=== PATIENT | female | born 1980 | race Caucasian/White ===

== ENCOUNTER 2021-09-01 16:55 | Inpatient (IN) ==
[2021-09-01] MEDS ORDERED: Naloxone 0.4 MG/ML INJ IVP PRN (19:46)
[2021-09-01 20:11] LABS: Adenovirus Not Detected (Not Detect); Bordetella Pertussis Not Detected (Not Detect); Chlamydophila pneumoniae Not Detected (Not Detect); Coronavirus 229E Not Detected (Not Detect); Coronavirus HKU1 Not Detected (Not Detect); Coronavirus NL63 Not Detected (Not Detect); Coronavirus OC43 Not Detected (Not Detect); Human Metapneumovirus Not Detected (Not Detect); Human Rhinovirus/Enterovirus DETECTED (Not Detect); Influenza A Subtype 2009 H1 Not Detected (Not Detect); Influenza B Not Detected (Not Detect); Mycoplasma pneumoniae Not Detected (Not Detect); Parainfluenza Virus 1 Not Detected (Not Detect); Parainfluenza Virus 2 Not Detected (Not Detect); Parainfluenza Virus 3 Not Detected (Not Detect); Parainfluenza Virus 4 Not Detected (Not Detect); Respiratory Syncytial Virus Not Detected (Not Detect); SARS-CoV-2 Not Detected (Not Detect)
[2021-09-01] MEDS ORDERED: Vancomycin 2,000 MG/520 ML IV.SOLN IVPB ONE (21:00)
[2021-09-01] MEDS ORDERED: 0.9 % Sodium Chloride 500 ML IVC ONE (21:06)
[2021-09-01] MEDS: Melatonin 3 MG TABLET PO PRN (21:20)
[2021-09-01 21:22] LABS: ABG Base Excess -4 mEq/L (-2 to 3); ABG HCO3 22 mEq/L (21-27); ABG Oxygen Saturation 93 % (95-98); ABG PCO2 42 mmHg (35-45); ABG PH 7.32 pH Units (7.32-7.45); ABG PO2 74 mmHg (85-104); ABG TCO2 23 mEq/L (20-26)
[2021-09-01] MEDS: Cefepime HCl 2,000 MG in 0.9 % Sodium Chloride 10 ML IVP SCH (21:39)
[2021-09-01] MEDS: MethylPREDNISolone 40 MG/ML VIAL IVP SCH (21:40)
[2021-09-01] MEDS ORDERED: 0.9 % Sodium Chloride 1,000 ML IVC SCH (23:45)
[2021-09-02] MEDS: Ipratropium/Albuterol Neb 3 ML IH SCH ×7 (00:08→23:15)
[2021-09-02] MEDS ORDERED: 0.9 % Sodium Chloride 1,000 ML IVC SCH (00:30)
[2021-09-02 00:56] LABS: Sodium, Urine 28.7 mEq/L
[2021-09-02 01:30] LABS: Basophils # 0.1 K/mcL (0.0-0.2); Basophils % 0.5 %; Eosinophils # 0.1 K/mcL (0.0-0.6); Eosinophils % 0.5 %; Hematocrit 37.2 % (35.3-44.9); Immature Granulocytes % 2.4 % (0-4); Immature Platelets 16.7 % (1.1-6.1); Lymphocytes # 1.1 K/mcL (0.6-4.6); Lymphocytes % 11.9 %; Mean Corpuscular HGB Conc 32.3 g/dL (31.6-35.5); Mean Corpuscular Hemoglobin 28.4 pg (28.0-33.3); Mean Corpuscular Volume 88.2 fL (83.0-100.0); Mean Platelet Volume 12.9 fL (9.4-12.4); Monocytes # 0.3 K/mcL (0.0-1.3); Monocytes % 3.7 %; Red Blood Count 4.22 M/mcL (3.82-4.97); Red Cell Distribution Width 14.9 % (11.5-14.5); White Blood Count 9.2 K/mcL (4.3-11.1)
[2021-09-02 01:32] LABS: Neutrophils # 7.5 K/mcL (1.6-8.9); Platelet Count 91 K/mcL (140-400)
[2021-09-02 01:44] LABS: Albumin 2.6 g/dL (3.5-5.7); Albumin/Globulin Ratio 0.7 (1.1-2.2); Bilirubin,Direct 2.2 mg/dL (0.0-0.2); Bilirubin,Indirect 0.9 mg/dL (0.0-1.0); Bilirubin,Total 3.1 mg/dL (0.3-1.0); Calcium 7.9 mg/dL (8.6-10.3); Globulin 3.6 g/dL (2.4-3.5); Potassium 4.3 mEq/L (3.5-5.1); Total Protein 6.2 g/dL (6.4-8.9)
[2021-09-02 01:55] LABS: Platelet Estimate Decreased (Normal); Reactive Lymphocytes Present (Not Present); Toxic Vacuolation Present (Not Present)
[2021-09-02 03:28] LABS: Estimated Average Glucose 123 mg/dl; Hemoglobin A1C 5.9 %
[2021-09-02] MEDS ORDERED: *HR* Heparin 5,000 UNIT/ML VIAL IVP ONE (04:12)
[2021-09-02] MEDS ORDERED: *HR* Heparin 5,000 UNIT/ML VIAL IVP PRN ×2 (04:12)
[2021-09-02] MEDS: Heparin 25,000UNIT/250ML 1/2NS 25,000 UNIT/250 ML IV.SOLN IVC SCH ×3 (04:54→19:49)
[2021-09-02] MEDS: Cefepime HCl 2,000 MG in 0.9 % Sodium Chloride 10 ML IVP SCH (05:20)
[2021-09-02] MEDS: MethylPREDNISolone 40 MG/ML VIAL IVP SCH ×3 (05:20→20:56)
[2021-09-02] MEDS ORDERED: *HR* Heparin 5,000 UNIT/ML VIAL SQ SCH (06:00)
[2021-09-02] MEDS: Insulin LISPRO 300 UNITS/3 ML VIAL SUBQ SCH ×3 (08:00→16:29)
[2021-09-02 09:15] LABS: Hematocrit 38.1 % (35.3-44.9); Hemoglobin 12.2 g/dL (11.5-15.4); Immature Platelets 17.5 % (1.1-6.1); Mean Corpuscular Hemoglobin 28.1 pg (28.0-33.3); Mean Corpuscular Volume 87.8 fL (83.0-100.0); Monocytes # 0.2 K/mcL (0.0-1.3); Red Blood Count 4.34 M/mcL (3.82-4.97); Red Cell Distribution Width 15.1 % (11.5-14.5); White Blood Count 10.9 K/mcL (4.3-11.1)
[2021-09-02 09:34] LABS: Albumin 2.5 g/dL (3.5-5.7); Albumin/Globulin Ratio 0.7 (1.1-2.2); Bilirubin,Total 3.1 mg/dL (0.3-1.0); Calcium 7.7 mg/dL (8.6-10.3); Globulin 3.6 g/dL (2.4-3.5); Potassium 4.5 mEq/L (3.5-5.1); Total Protein 6.1 g/dL (6.4-8.9)
[2021-09-02 09:36] LABS: Platelet Count 98 K/mcL (140-400)
[2021-09-02] MEDS: Albumin 25% 25gram/100mL 25 GM/100 ML IV.SOLN IVPB SCH ×3 (09:40→23:48)
[2021-09-02 09:41] LABS: Neutrophils # 8.7 K/mcL (1.6-8.9); Platelet Estimate Decreased (Normal)
[2021-09-02 09:45] LABS: Bilirubin,Urine Negative (Negative); Blood,Urine Small (Negative); Clarity,Urine Ex.Turbid (Clear); Color,Urine Dark-Orange (Yellow); Glucose,Urine (UA) Normal (Normal); Ketones,Urine Negative (Negative); Leukocyte Esterase,Urine Large (Negative); Nitrite,Urine Negative (Negative); PH,Urine 5.5 pH Units (5.0-8.0); Protein,Urine 200 mg/dL (Neg-Trace); Specific Gravity,Urine 1.016 (1.010-1.025); Urobilinogen,Urine Normal (Normal)
[2021-09-02 09:55] LABS: Bacteria,Urine Present per hpf (None-Few); RBC,Urine Present per hpf (0-3); WBC,Urine TNTC per hpf (0-3)
[2021-09-02 09:56] LABS: Squamous Epithelial Cell,Urine Present per hpf (None-Few); Transitional Epi Cells,Urine Present per hpf (None-Few)
[2021-09-02] MEDS ORDERED: Ondansetron ODT 4 MG TAB.RAPDIS SL PRN (13:50)
[2021-09-02] MEDS ORDERED: Perflutren Lipid Microsphere 1.3 ML in 0.9 % Sodium Chloride 8.7 ML IVP PRN (15:22)
[2021-09-02] MEDS ORDERED: Cefepime HCl 2,000 MG in 0.9 % Sodium Chloride 10 ML IVP SCH ×2 (17:00→21:00)
[2021-09-02] MEDS: Budesonide/Formoterol 160/4.5 1 PUFF INH IH SCH (20:05)
[2021-09-02] MEDS ORDERED: MethylPREDNISolone 40 MG/ML VIAL IVP SCH (20:45)
[2021-09-02 20:48] LABS: Hepatitis B Surface Antigen Nonreactive (Nonreactive)
[2021-09-02] MEDS: methocarbamoL 750 MG TABLET PO SCH (20:56)
[2021-09-02] MEDS ORDERED: Vancomycin 2,000 MG/520 ML IV.SOLN IVPB ONE (21:00)
[2021-09-02 21:17] LABS: Hepatitis B Core IgM Nonreactive (Nonreactive); Hepatitis C Virus Antibody Nonreactive (Nonreactive)
[2021-09-02 21:19] LABS: Hepatitis A Antibody IgM Nonreactive (Nonreactive)
[2021-09-02] MEDS: Piperacillin/Tazobactam 3.375 GM in 0.9 % Sodium Chloride Mini Bag 100 ML IVPB SCH (23:49)
[2021-09-03 03:26] LABS: Basophils # 0.1 K/mcL (0.0-0.2); Basophils % 0.6 %; Hematocrit 34.7 % (35.3-44.9); Hemoglobin 11.2 g/dL (11.5-15.4); Immature Granulocytes % 6.3 % (0-4); Lymphocytes # 1.9 K/mcL (0.6-4.6); Mean Corpuscular HGB Conc 32.3 g/dL (31.6-35.5); Mean Corpuscular Hemoglobin 28.3 pg (28.0-33.3); Mean Corpuscular Volume 87.6 fL (83.0-100.0); Mean Platelet Volume 12.9 fL (9.4-12.4); Monocytes # 0.3 K/mcL (0.0-1.3); Neutrophils # 9.5 K/mcL (1.6-8.9); Platelet Count 106 K/mcL (140-400); Red Blood Count 3.96 M/mcL (3.82-4.97); Red Cell Distribution Width 14.9 % (11.5-14.5); Segmented Neutrophils % 76.1 %; White Blood Count 12.5 K/mcL (4.3-11.1)
[2021-09-03 03:41] LABS: Albumin 3.2 g/dL (3.5-5.7); Albumin/Globulin Ratio 0.9 (1.1-2.2); Bilirubin,Total 2.1 mg/dL (0.3-1.0); Calcium 8.1 mg/dL (8.6-10.3); Globulin 3.4 g/dL (2.4-3.5); Potassium 4.1 mEq/L (3.5-5.1); Total Protein 6.6 g/dL (6.4-8.9)
[2021-09-03 03:42] LABS: Complement C3 128 mg/dL (87-200)
[2021-09-03 04:01] LABS: Heparin anti-factor XA UFH 0.37 IU/mL (0.30-0.70)
[2021-09-03 04:02] LABS: INR 1.3; Prothrombin Time 14.2 Seconds (9.4-12.1)
[2021-09-03] MEDS: Ipratropium/Albuterol Neb 3 ML IH SCH ×6 (04:08→23:29)
[2021-09-03] MEDS: Heparin 25,000UNIT/250ML 1/2NS 25,000 UNIT/250 ML IV.SOLN IVC SCH ×4 (04:13→23:42)
[2021-09-03 04:26] LABS: Hypochromasia Present (Not Present); Platelet Estimate Decreased (Normal)
[2021-09-03] MEDS: MethylPREDNISolone 40 MG/ML VIAL IVP SCH ×3 (05:35→22:07)
[2021-09-03] MEDS: Budesonide/Formoterol 160/4.5 1 PUFF INH IH SCH ×2 (07:24→19:59)
[2021-09-03] MEDS: methocarbamoL 750 MG TABLET PO SCH ×2 (08:17→22:06)
[2021-09-03] MEDS: Piperacillin/Tazobactam 3.375 GM in 0.9 % Sodium Chloride Mini Bag 100 ML IVPB SCH (08:17)
[2021-09-03] MEDS: Albumin 25% 25gram/100mL 25 GM/100 ML IV.SOLN IVPB SCH (08:17)
[2021-09-03] MEDS: Insulin LISPRO 300 UNITS/3 ML VIAL SUBQ SCH ×4 (08:18→22:02)
[2021-09-03] MEDS: *HR* HYDROcodone/Acet 5/325 mg TABLET PO PRN (08:22)
[2021-09-03] MEDS: levoFLOXacin 750 MG/150 ML 750 MG/150 ML BAG IVPB SCH (11:48)
[2021-09-03] MEDS: Chlorhexidine Rinse 15 ML MOUTHWASH MM SCH ×2 (13:32→22:07)
[2021-09-03] MEDS: Sodium Bicarbonate 75 MEQ in 0.45 % Sodium Chloride 1,000 ML IVC SCH (16:10)
[2021-09-03] MEDS: Melatonin 3 MG TABLET PO PRN (22:07)
[2021-09-03] MEDS: metroNIDAZOLE 500 MG TABLET PO SCH (22:07)
[2021-09-04] MEDS: Sodium Bicarbonate 75 MEQ in 0.45 % Sodium Chloride 1,000 ML IVC SCH ×2 (01:29→12:04)
[2021-09-04] MEDS: Ipratropium/Albuterol Neb 3 ML IH SCH ×5 (04:28→20:31)
[2021-09-04 04:39] LABS: Albumin 3.3 g/dL (3.5-5.7); Albumin/Globulin Ratio 0.8 (1.1-2.2); Bilirubin,Direct 0.8 mg/dL (0.0-0.2); Bilirubin,Indirect 0.7 mg/dL (0.0-1.0); Bilirubin,Total 1.5 mg/dL (0.3-1.0); Globulin 4.4 g/dL (2.4-3.5); Total Protein 7.7 g/dL (6.4-8.9)
[2021-09-04] MEDS: MethylPREDNISolone 40 MG/ML VIAL IVP SCH ×3 (05:30→22:40)
[2021-09-04] MEDS: Heparin 25,000UNIT/250ML 1/2NS 25,000 UNIT/250 ML IV.SOLN IVC SCH ×3 (07:04→20:54)
[2021-09-04] MEDS: Budesonide/Formoterol 160/4.5 1 PUFF INH IH SCH ×2 (07:21→20:31)
[2021-09-04] MEDS: Insulin LISPRO 300 UNITS/3 ML VIAL SUBQ SCH ×4 (07:40→22:42)
[2021-09-04] MEDS: Chlorhexidine Rinse 15 ML MOUTHWASH MM SCH ×2 (07:41→22:48)
[2021-09-04] MEDS: levoFLOXacin 750 MG/150 ML 750 MG/150 ML BAG IVPB SCH (07:41)
[2021-09-04] MEDS: metroNIDAZOLE 500 MG TABLET PO SCH ×3 (07:41→22:49)
[2021-09-04] MEDS: methocarbamoL 750 MG TABLET PO SCH ×2 (07:41→22:49)
[2021-09-04 09:59] LABS: Calcium 8.2 mg/dL (8.6-10.3); Magnesium 2.3 mg/dL (1.6-2.6); Phosphorous 4.7 mg/dL (2.7-4.5); Potassium 4.2 mEq/L (3.5-5.1)
[2021-09-04 12:57] LABS: HSV 1 DNA DETECTED (Not Detect)
[2021-09-04 12:58] LABS: HSV 2 DNA Not Detected (Not Detect)
[2021-09-04] MEDS: Melatonin 3 MG TABLET PO PRN (22:49)
[2021-09-04] MEDS: Insulin DETEMIR 100 UNIT/ML X5UNITS SUBQ SCH (22:52)
[2021-09-04] MEDS: valACYclovir 500 MG TABLET PO SCH (22:56)
[2021-09-05] MEDS: Ipratropium/Albuterol Neb 3 ML IH SCH ×6 (00:02→20:24)
[2021-09-05] MEDS: Sodium Bicarbonate 75 MEQ in 0.45 % Sodium Chloride 1,000 ML IVC SCH (00:56)
[2021-09-05] MEDS: Heparin 25,000UNIT/250ML 1/2NS 25,000 UNIT/250 ML IV.SOLN IVC SCH ×2 (05:02→12:00)
[2021-09-05 05:19] LABS: Hemoglobin 11.2 g/dL (11.5-15.4); Mean Corpuscular Volume 86.5 fL (83.0-100.0)
[2021-09-05 05:21] LABS: Basophils # 0.1 K/mcL (0.0-0.2); Basophils % 0.6 %; Immature Granulocytes % 8.6 % (0-4); Immature Platelets 23.4 % (1.1-6.1); Lymphocytes # 1.4 K/mcL (0.6-4.6); Lymphocytes % 11.9 %; Mean Corpuscular HGB Conc 32.9 g/dL (31.6-35.5); Mean Corpuscular Hemoglobin 28.5 pg (28.0-33.3); Monocytes # 0.4 K/mcL (0.0-1.3); Monocytes % 3.6 %; Neutrophils # 8.8 K/mcL (1.6-8.9); Red Blood Count 3.93 M/mcL (3.82-4.97); Red Cell Distribution Width 15.9 % (11.5-14.5); Segmented Neutrophils % 75.3 %; White Blood Count 11.7 K/mcL (4.3-11.1)
[2021-09-05 05:35] LABS: BUN/Creatinine Ratio 45 (6-26); Blood Urea Nitrogen 45 mg/dL (6-20); Calcium 8.6 mg/dL (8.6-10.3); Carbon Dioxide 25 mEq/L (23-29); Chloride 103 mEq/L (98-107); Glucose 204 mg/dL (70-105); Magnesium 2.2 mg/dL (1.6-2.6); Osmolality,Calculated 303 (280-300); Phosphorous 3.8 mg/dL (2.7-4.5); Potassium 4.4 mEq/L (3.5-5.1); Sodium 138 mEq/L (136-145); eGFR For African Americans > 60 (> 60); eGFR For Non-African Americans > 60 (> 60)
[2021-09-05] MEDS: MethylPREDNISolone 40 MG/ML VIAL IVP SCH (05:43)
[2021-09-05 05:54] LABS: Platelet Count 97 K/mcL (140-400)
[2021-09-05] MEDS: Budesonide/Formoterol 160/4.5 1 PUFF INH IH SCH ×2 (07:47→20:24)
[2021-09-05] MEDS: Chlorhexidine Rinse 15 ML MOUTHWASH MM SCH ×2 (08:19→20:32)
[2021-09-05] MEDS: metroNIDAZOLE 500 MG TABLET PO SCH ×3 (08:19→20:32)
[2021-09-05] MEDS: levoFLOXacin 750 MG/150 ML 750 MG/150 ML BAG IVPB SCH (08:20)
[2021-09-05] MEDS: methocarbamoL 750 MG TABLET PO SCH ×2 (08:20→20:32)
[2021-09-05] MEDS: BuPROPion XL (24 HR) 150 MG TABLET PO SCH (08:20)
[2021-09-05] MEDS: valACYclovir 500 MG TABLET PO SCH ×2 (08:20→20:32)
[2021-09-05] MEDS: Insulin LISPRO 300 UNITS/3 ML VIAL SUBQ SCH ×4 (08:21→19:26)
[2021-09-05] MEDS: Insulin DETEMIR 100 UNIT/ML X5UNITS SUBQ SCH ×2 (08:40→20:32)
[2021-09-05] MEDS: Magic Mouthwash 10 ML UD Cup PO SCH ×3 (09:36→16:18)
[2021-09-05 09:48] LABS: ANA IgG by ELISA NONE DETECTED (None Detected)
[2021-09-05] MEDS: Pregabalin 75 MG CAPSULE PO SCH ×2 (16:18→20:32)
[2021-09-05] MEDS ORDERED: Sennosides/Docusate Sodium TABLET PO PRN (18:11)
[2021-09-05] MEDS: *HR* Rivaroxaban 15 MG TABLET PO SCH (20:32)
[2021-09-06] MEDS: Ipratropium/Albuterol Neb 3 ML IH SCH ×7 (00:58→23:51)
[2021-09-06 05:36] LABS: Basophils # 0.1 K/mcL (0.0-0.2); Basophils % 0.7 %; Eosinophils % 0.2 %; Hematocrit 34.8 % (35.3-44.9); Hemoglobin 11.3 g/dL (11.5-15.4); Immature Granulocytes % 7.7 % (0-4); Lymphocytes # 2.5 K/mcL (0.6-4.6); Lymphocytes % 20.6 %; Mean Corpuscular HGB Conc 32.5 g/dL (31.6-35.5); Mean Corpuscular Hemoglobin 28.5 pg (28.0-33.3); Mean Corpuscular Volume 87.9 fL (83.0-100.0); Monocytes # 0.4 K/mcL (0.0-1.3); Monocytes % 3.6 %; Neutrophils # 8.1 K/mcL (1.6-8.9); Platelet Count 149 K/mcL (140-400); Red Blood Count 3.96 M/mcL (3.82-4.97); Red Cell Distribution Width 15.3 % (11.5-14.5); Segmented Neutrophils % 67.2 %; White Blood Count 12.1 K/mcL (4.3-11.1)
[2021-09-06 05:53] LABS: BUN/Creatinine Ratio 49 (6-26); Blood Urea Nitrogen 38 mg/dL (6-20); Calcium 8.6 mg/dL (8.6-10.3); Carbon Dioxide 29 mEq/L (23-29); Chloride 104 mEq/L (98-107); Glucose 149 mg/dL (70-105); Magnesium 1.8 mg/dL (1.6-2.6); Osmolality,Calculated 302 (280-300); Phosphorous 2.9 mg/dL (2.7-4.5); Potassium 3.9 mEq/L (3.5-5.1); Sodium 140 mEq/L (136-145); eGFR For African Americans > 60 (> 60); eGFR For Non-African Americans > 60 (> 60)
[2021-09-06 06:41] LABS: Large Platelets Present (Not Present); Platelet Estimate Normal (Normal)
[2021-09-06] MEDS: Insulin LISPRO 300 UNITS/3 ML VIAL SUBQ SCH ×4 (07:20→21:19)
[2021-09-06] MEDS: Budesonide/Formoterol 160/4.5 1 PUFF INH IH SCH ×2 (07:38→20:36)
[2021-09-06] MEDS: predniSONE 20 MG TABLET PO SCH (08:04)
[2021-09-06] MEDS: atenoloL 25 MG TABLET PO SCH ×2 (08:04→21:50)
[2021-09-06] MEDS: metroNIDAZOLE 500 MG TABLET PO SCH ×3 (08:04→21:50)
[2021-09-06] MEDS: Furosemide 40 MG TABLET PO SCH (08:05)
[2021-09-06] MEDS: methocarbamoL 750 MG TABLET PO SCH ×2 (08:05→21:49)
[2021-09-06] MEDS: Cholecalciferol (D-3) 1,000 UNIT (25MCG) TABLET PO SCH (08:05)
[2021-09-06] MEDS: BuPROPion XL (24 HR) 150 MG TABLET PO SCH (08:05)
[2021-09-06] MEDS: levoFLOXacin 750 MG TABLET PO SCH (08:05)
[2021-09-06] MEDS: valACYclovir 500 MG TABLET PO SCH ×2 (08:06→21:50)
[2021-09-06] MEDS: allopurinoL 100 MG TABLET PO SCH (08:06)
[2021-09-06] MEDS: *HR* Rivaroxaban 15 MG TABLET PO SCH ×2 (08:06→21:50)
[2021-09-06] MEDS: Magic Mouthwash 10 ML UD Cup PO SCH ×3 (08:06→16:49)
[2021-09-06] MEDS: Pregabalin 75 MG CAPSULE PO SCH ×3 (08:06→21:49)
[2021-09-06] MEDS: Chlorhexidine Rinse 15 ML MOUTHWASH MM SCH (08:06)
[2021-09-06] MEDS: Insulin DETEMIR 100 UNIT/ML X5UNITS SUBQ SCH ×2 (08:06→21:19)
[2021-09-06] MEDS: *HR* HYDROcodone/Acet 5/325 mg TABLET PO PRN (18:44)
[2021-09-07] MEDS: Ipratropium/Albuterol Neb 3 ML IH SCH ×5 (04:37→20:16)
[2021-09-07 05:31] LABS: Hematocrit 36.9 % (35.3-44.9); Hemoglobin 12.1 g/dL (11.5-15.4); Mean Corpuscular HGB Conc 32.8 g/dL (31.6-35.5); Mean Corpuscular Hemoglobin 28.6 pg (28.0-33.3); Mean Corpuscular Volume 87.2 fL (83.0-100.0); Mean Platelet Volume 11.7 fL (9.4-12.4); Platelet Count 168 K/mcL (140-400); Red Blood Count 4.23 M/mcL (3.82-4.97); Red Cell Distribution Width 15.2 % (11.5-14.5); White Blood Count 15.1 K/mcL (4.3-11.1)
[2021-09-07 05:54] LABS: BUN/Creatinine Ratio 46 (6-26); Blood Urea Nitrogen 31 mg/dL (6-20); Calcium 8.6 mg/dL (8.6-10.3); Carbon Dioxide 32 mEq/L (23-29); Chloride 100 mEq/L (98-107); Glucose 122 mg/dL (70-105); Magnesium 1.5 mg/dL (1.6-2.6); Osmolality,Calculated 294 (280-300); Phosphorous 3.5 mg/dL (2.7-4.5); Potassium 3.7 mEq/L (3.5-5.1); Sodium 138 mEq/L (136-145); eGFR For African Americans > 60 (> 60); eGFR For Non-African Americans > 60 (> 60)
[2021-09-07 06:17] LABS: Stomatocytes 1+ (Not Present)
[2021-09-07 06:18] LABS: Eosinophils # 0.6 K/mcL (0.0-0.6); Lymphocytes # 4.5 K/mcL (0.6-4.6); Neutrophils # 9.7 K/mcL (1.6-8.9); Platelet Estimate Normal (Normal)
[2021-09-07] MEDS: Insulin LISPRO 300 UNITS/3 ML VIAL SUBQ SCH ×4 (07:30→21:02)
[2021-09-07] MEDS: Budesonide/Formoterol 160/4.5 1 PUFF INH IH SCH ×2 (07:55→20:16)
[2021-09-07] MEDS: BuPROPion XL (24 HR) 150 MG TABLET PO SCH (08:29)
[2021-09-07] MEDS: levoFLOXacin 750 MG TABLET PO SCH (08:29)
[2021-09-07] MEDS: Furosemide 40 MG TABLET PO SCH (08:29)
[2021-09-07] MEDS: methocarbamoL 750 MG TABLET PO SCH ×2 (08:29→21:00)
[2021-09-07] MEDS: allopurinoL 100 MG TABLET PO SCH (08:29)
[2021-09-07] MEDS: atenoloL 25 MG TABLET PO SCH ×2 (08:29→21:01)
[2021-09-07] MEDS: *HR* Rivaroxaban 15 MG TABLET PO SCH ×2 (08:29→21:01)
[2021-09-07] MEDS: Cholecalciferol (D-3) 1,000 UNIT (25MCG) TABLET PO SCH (08:29)
[2021-09-07] MEDS: predniSONE 20 MG TABLET PO SCH (08:30)
[2021-09-07] MEDS: Magnesium Oxide 400 MG TABLET PO SCH ×2 (08:30→21:01)
[2021-09-07] MEDS: Pregabalin 75 MG CAPSULE PO SCH ×3 (08:30→21:01)
[2021-09-07] MEDS: Magic Mouthwash 10 ML UD Cup PO SCH ×3 (08:30→15:51)
[2021-09-07] MEDS: valACYclovir 500 MG TABLET PO SCH ×2 (08:30→21:01)
[2021-09-07] MEDS: metroNIDAZOLE 500 MG TABLET PO SCH ×3 (08:30→21:01)
[2021-09-07] MEDS ORDERED: Insulin DETEMIR 100 UNIT/ML X5UNITS SUBQ SCH (21:00)
[2021-09-08] MEDS: Ipratropium/Albuterol Neb 3 ML IH SCH ×4 (00:25→11:23)
[2021-09-08] MEDS: Budesonide/Formoterol 160/4.5 1 PUFF INH IH SCH (07:37)
[2021-09-08 07:39] VITALS: BP 139/62; PULSE 80; TEMP 97
[2021-09-08] MEDS: Insulin LISPRO 300 UNITS/3 ML VIAL SUBQ SCH (09:17)
[2021-09-08] MEDS: Furosemide 40 MG TABLET PO SCH (09:30)
[2021-09-08] MEDS: *HR* Rivaroxaban 15 MG TABLET PO SCH (09:30)
[2021-09-08] MEDS: Magic Mouthwash 10 ML UD Cup PO SCH (09:30)
[2021-09-08] MEDS: allopurinoL 100 MG TABLET PO SCH (09:30)
[2021-09-08] MEDS: BuPROPion XL (24 HR) 150 MG TABLET PO SCH (09:30)
[2021-09-08] MEDS: methocarbamoL 750 MG TABLET PO SCH (09:31)
[2021-09-08] MEDS: valACYclovir 500 MG TABLET PO SCH (09:31)
[2021-09-08] MEDS: Pregabalin 75 MG CAPSULE PO SCH (09:31)
[2021-09-08] MEDS: atenoloL 25 MG TABLET PO SCH (09:31)
[2021-09-08] MEDS: levoFLOXacin 750 MG TABLET PO SCH (09:31)
[2021-09-08] MEDS: metroNIDAZOLE 500 MG TABLET PO SCH (09:31)
[2021-09-08] MEDS: predniSONE 20 MG TABLET PO SCH (09:31)
[2021-09-08] MEDS: Cholecalciferol (D-3) 1,000 UNIT (25MCG) TABLET PO SCH (09:32)
[2021-09-08] MEDS: Magnesium Oxide 400 MG TABLET PO SCH (09:32)
[2021-09-08 10:40] VITALS: O2SAT 91
[2021-09-22] MEDS ORDERED: *HR* Rivaroxaban 10 MG TABLET PO SCH (17:00)
== END 2021-09-08 13:11 | disposition home or self-care (01) | DRG 466 ==
LOC: 2NENU → SUATTDRO 19:46
PROVIDERS: ADMIT Internal Medicine; ATTEND Internal Medicine

== ENCOUNTER 2021-10-02 14:48 | Inpatient (IN) ==
[2021-10-02] MEDS ORDERED: D5% in Water 1,000 ML IVC PRN (17:27)
[2021-10-02] MEDS ORDERED: Dextrose Gel 15 GM/37.5 ML TUBE PO PRN ×2 (17:27)
[2021-10-02] MEDS ORDERED: *HR* Dextrose 50 % in Water (Syg) 50 ML SYRINGE IVP PRN (17:27)
[2021-10-02] MEDS ORDERED: Acetaminophen 325 MG TABLET PO PRN (17:27)
[2021-10-02] MEDS ORDERED: Naloxone 0.4 MG/ML INJ IVP PRN (17:27)
[2021-10-02] MEDS: *HR* OxyCODONE Immed Rel 5 MG TABLET PO PRN (18:24)
[2021-10-02] MEDS: *HR* Heparin 5,000 UNIT/ML VIAL SQ SCH (18:24)
[2021-10-02] MEDS: Vancomycin 2,000 MG/520 ML IV.SOLN IVPB SCH (21:18)
[2021-10-03] MEDS: Piperacillin/Tazobactam 3.375 GM in 0.9 % Sodium Chloride Mini Bag 100 ML IVPB SCH ×4 (00:34→23:41)
[2021-10-03] MEDS: *HR* Heparin 5,000 UNIT/ML VIAL SQ SCH ×2 (05:26→16:37)
[2021-10-03] MEDS: Insulin LISPRO 300 UNITS/3 ML VIAL SUBQ SCH ×3 (08:43→16:40)
[2021-10-03] MEDS: Pregabalin 75 MG CAPSULE PO SCH ×3 (08:49→20:59)
[2021-10-03] MEDS: BuPROPion XL (24 HR) 150 MG TABLET PO SCH (08:49)
[2021-10-03] MEDS: atenoloL 25 MG TABLET PO SCH ×2 (08:50→20:59)
[2021-10-03] MEDS: allopurinoL 100 MG TABLET PO SCH (08:50)
[2021-10-03] MEDS: methocarbamoL 750 MG TABLET PO SCH ×2 (08:50→20:59)
[2021-10-03] MEDS: Furosemide 40 MG TABLET PO SCH (08:50)
[2021-10-03] MEDS: Cholecalciferol (D-3) 1,000 UNIT (25MCG) TABLET PO SCH (08:50)
[2021-10-03] MEDS: Vancomycin 2,000 MG/520 ML IV.SOLN IVPB SCH ×2 (08:51→20:27)
[2021-10-03 09:19] LABS: Basophils % 0.6 %; Eosinophils # 0.2 K/mcL (0.0-0.6); Eosinophils % 3.3 %; Hematocrit 31.8 % (35.3-44.9); Hemoglobin 10.2 g/dL (11.5-15.4); Immature Granulocytes % 0.7 % (0-4); Lymphocytes # 1.9 K/mcL (0.6-4.6); Lymphocytes % 25.8 %; Mean Corpuscular HGB Conc 32.1 g/dL (31.6-35.5); Mean Corpuscular Hemoglobin 28.1 pg (28.0-33.3); Mean Corpuscular Volume 87.6 fL (83.0-100.0); Mean Platelet Volume 10.8 fL (9.4-12.4); Monocytes # 0.6 K/mcL (0.0-1.3); Monocytes % 8.5 %; Neutrophils # 4.4 K/mcL (1.6-8.9); Platelet Count 203 K/mcL (140-400); Red Blood Count 3.63 M/mcL (3.82-4.97); Red Cell Distribution Width 14.7 % (11.5-14.5); Segmented Neutrophils % 61.1 %; White Blood Count 7.3 K/mcL (4.3-11.1)
[2021-10-03 09:39] LABS: BUN/Creatinine Ratio 20 (6-26); Blood Urea Nitrogen 15 mg/dL (6-20); Calcium 8.2 mg/dL (8.6-10.3); Carbon Dioxide 24 mEq/L (23-29); Chloride 105 mEq/L (98-107); Glucose 120 mg/dL (70-105); Magnesium 1.9 mg/dL (1.6-2.6); Osmolality,Calculated 284 (280-300); Potassium 3.7 mEq/L (3.5-5.1); Sodium 136 mEq/L (136-145); eGFR For African Americans > 60 (> 60); eGFR For Non-African Americans > 60 (> 60)
[2021-10-03] MEDS: *HR* OxyCODONE Immed Rel 5 MG TABLET PO PRN (10:40)
[2021-10-03] MEDS: *HR* HYDROmorphone (PF) 1 MG/ML SYRINGE IVP ONE (11:20)
[2021-10-03] MEDS: Budesonide/Formoterol 160/4.5 1 PUFF INH IH SCH ×2 (11:23→20:23)
[2021-10-04 05:03] LABS: Basophils # 0.1 K/mcL (0.0-0.2); Basophils % 0.7 %; Eosinophils # 0.3 K/mcL (0.0-0.6); Eosinophils % 3.9 %; Hematocrit 32.7 % (35.3-44.9); Hemoglobin 10.4 g/dL (11.5-15.4); Immature Granulocytes % 0.4 % (0-4); Lymphocytes # 2.4 K/mcL (0.6-4.6); Lymphocytes % 33.1 %; Mean Corpuscular HGB Conc 31.8 g/dL (31.6-35.5); Mean Corpuscular Hemoglobin 28.5 pg (28.0-33.3); Mean Corpuscular Volume 89.6 fL (83.0-100.0); Monocytes # 0.8 K/mcL (0.0-1.3); Monocytes % 10.2 %; Neutrophils # 3.8 K/mcL (1.6-8.9); Platelet Count 201 K/mcL (140-400); Red Blood Count 3.65 M/mcL (3.82-4.97); Red Cell Distribution Width 14.6 % (11.5-14.5); Segmented Neutrophils % 51.7 %; White Blood Count 7.4 K/mcL (4.3-11.1)
[2021-10-04 05:22] LABS: BUN/Creatinine Ratio 19 (6-26); Blood Urea Nitrogen 13 mg/dL (6-20); Calcium 8.3 mg/dL (8.6-10.3); Carbon Dioxide 25 mEq/L (23-29); Chloride 103 mEq/L (98-107); Glucose 107 mg/dL (70-105); Osmolality,Calculated 283 (280-300); Potassium 3.4 mEq/L (3.5-5.1); Sodium 136 mEq/L (136-145); eGFR For African Americans > 60 (> 60); eGFR For Non-African Americans > 60 (> 60)
[2021-10-04] MEDS: *HR* Heparin 5,000 UNIT/ML VIAL SQ SCH ×2 (05:50→17:26)
[2021-10-04] MEDS ORDERED: Potassium Chloride Elixir 20 MEQ/15 ML UDC PO ONE (07:45)
[2021-10-04] MEDS: *HR* OxyCODONE Immed Rel 5 MG TABLET PO PRN ×2 (09:22→21:26)
[2021-10-04] MEDS: methocarbamoL 750 MG TABLET PO SCH ×2 (09:25→21:17)
[2021-10-04] MEDS: allopurinoL 100 MG TABLET PO SCH (09:25)
[2021-10-04] MEDS: Pregabalin 75 MG CAPSULE PO SCH ×3 (09:25→21:17)
[2021-10-04] MEDS: BuPROPion XL (24 HR) 150 MG TABLET PO SCH (09:25)
[2021-10-04] MEDS: Cholecalciferol (D-3) 1,000 UNIT (25MCG) TABLET PO SCH (09:26)
[2021-10-04] MEDS: atenoloL 25 MG TABLET PO SCH ×2 (09:26→21:17)
[2021-10-04] MEDS: Furosemide 40 MG TABLET PO SCH (09:26)
[2021-10-04] MEDS: Piperacillin/Tazobactam 3.375 GM in 0.9 % Sodium Chloride Mini Bag 100 ML IVPB SCH ×2 (09:27→17:25)
[2021-10-04] MEDS: Vancomycin 2,000 MG/520 ML IV.SOLN IVPB SCH ×2 (09:42→21:26)
[2021-10-04] MEDS: Budesonide/Formoterol 160/4.5 1 PUFF INH IH SCH ×2 (10:38→20:06)
[2021-10-04] MEDS: Insulin LISPRO 300 UNITS/3 ML VIAL SUBQ SCH ×3 (10:47→17:14)
[2021-10-04] MEDS ORDERED: polyethylene glycoL 3350 17 GM POWD.PACK PO PRN (12:19)
[2021-10-04] MEDS ORDERED: *HR* HYDROmorphone (PF) 1 MG/ML SYRINGE IVP ONE (12:46)
[2021-10-04] MEDS: *HR* HYDROmorphone (PF) 1 MG/ML SYRINGE IVP ONE (15:10)
[2021-10-05] MEDS: Piperacillin/Tazobactam 3.375 GM in 0.9 % Sodium Chloride Mini Bag 100 ML IVPB SCH ×2 (00:06→08:38)
[2021-10-05] MEDS: *HR* Heparin 5,000 UNIT/ML VIAL SQ SCH ×2 (06:08→17:19)
[2021-10-05] MEDS: methocarbamoL 750 MG TABLET PO SCH ×2 (08:40→21:16)
[2021-10-05] MEDS: atenoloL 25 MG TABLET PO SCH ×2 (08:40→21:16)
[2021-10-05] MEDS: allopurinoL 100 MG TABLET PO SCH (08:40)
[2021-10-05] MEDS: Cholecalciferol (D-3) 1,000 UNIT (25MCG) TABLET PO SCH (08:40)
[2021-10-05] MEDS: Pregabalin 75 MG CAPSULE PO SCH ×3 (08:40→21:16)
[2021-10-05] MEDS: BuPROPion XL (24 HR) 150 MG TABLET PO SCH (08:41)
[2021-10-05] MEDS: Furosemide 40 MG TABLET PO SCH (08:42)
[2021-10-05] MEDS: Insulin LISPRO 300 UNITS/3 ML VIAL SUBQ SCH ×3 (08:45→17:19)
[2021-10-05 08:56] LABS: Basophils % 0.6 %; Eosinophils # 0.2 K/mcL (0.0-0.6); Eosinophils % 3.5 %; Hematocrit 34.7 % (35.3-44.9); Hemoglobin 10.8 g/dL (11.5-15.4); Immature Granulocytes % 0.8 % (0-4); Lymphocytes # 1.7 K/mcL (0.6-4.6); Lymphocytes % 25.1 %; Mean Corpuscular HGB Conc 31.1 g/dL (31.6-35.5); Mean Corpuscular Hemoglobin 27.8 pg (28.0-33.3); Mean Corpuscular Volume 89.4 fL (83.0-100.0); Mean Platelet Volume 10.2 fL (9.4-12.4); Monocytes # 0.6 K/mcL (0.0-1.3); Monocytes % 9.4 %; Platelet Count 201 K/mcL (140-400); Red Blood Count 3.88 M/mcL (3.82-4.97); Red Cell Distribution Width 14.6 % (11.5-14.5); Segmented Neutrophils % 60.6 %; White Blood Count 6.6 K/mcL (4.3-11.1)
[2021-10-05] MEDS: *HR* OxyCODONE Immed Rel 5 MG TABLET PO PRN ×2 (09:02→17:20)
[2021-10-05] MEDS: Budesonide/Formoterol 160/4.5 1 PUFF INH IH SCH ×2 (09:03→20:05)
[2021-10-05 09:17] LABS: BUN/Creatinine Ratio 11 (6-26); Blood Urea Nitrogen 11 mg/dL (6-20); Calcium 8.2 mg/dL (8.6-10.3); Carbon Dioxide 27 mEq/L (23-29); Chloride 103 mEq/L (98-107); Glucose 138 mg/dL (70-105); Osmolality,Calculated 290 (280-300); Potassium 3.3 mEq/L (3.5-5.1); Sodium 139 mEq/L (136-145); eGFR For African Americans > 60 (> 60); eGFR For Non-African Americans > 60 (> 60)
[2021-10-05] MEDS: Vancomycin 2,000 MG/520 ML IV.SOLN IVPB SCH (09:33)
[2021-10-05] MEDS ORDERED: Potassium Chloride Elixir 20 MEQ/15 ML UDC PO ONE (10:33)
[2021-10-05] MEDS ORDERED: *HR* HYDROmorphone (PF) 1 MG/ML SYRINGE IVP ONE (10:47)
[2021-10-05] MEDS: Cefepime HCl 2,000 MG in 0.9 % Sodium Chloride 10 ML IVPB SCH ×2 (16:19→23:34)
[2021-10-06 01:43] LABS: Basophils # 0.1 K/mcL (0.0-0.2); Basophils % 0.7 %; Eosinophils # 0.3 K/mcL (0.0-0.6); Eosinophils % 3.6 %; Hematocrit 33.2 % (35.3-44.9); Hemoglobin 10.6 g/dL (11.5-15.4); Immature Granulocytes % 1.1 % (0-4); Lymphocytes # 2.5 K/mcL (0.6-4.6); Mean Corpuscular HGB Conc 31.9 g/dL (31.6-35.5); Mean Corpuscular Hemoglobin 28.4 pg (28.0-33.3); Mean Platelet Volume 10.2 fL (9.4-12.4); Monocytes # 0.8 K/mcL (0.0-1.3); Monocytes % 9.6 %; Neutrophils # 4.5 K/mcL (1.6-8.9); Platelet Count 224 K/mcL (140-400); Red Blood Count 3.73 M/mcL (3.82-4.97); Red Cell Distribution Width 14.5 % (11.5-14.5); White Blood Count 8.3 K/mcL (4.3-11.1)
[2021-10-06 02:09] LABS: Calcium 8.2 mg/dL (8.6-10.3); Potassium 3.1 mEq/L (3.5-5.1)
[2021-10-06] MEDS: *HR* Heparin 5,000 UNIT/ML VIAL SQ SCH ×2 (05:41→16:58)
[2021-10-06] MEDS ORDERED: 0.9 % Sodium Chloride 1,000 ML IVC SCH (07:30)
[2021-10-06] MEDS: Budesonide/Formoterol 160/4.5 1 PUFF INH IH SCH ×2 (07:32→20:25)
[2021-10-06] MEDS: Insulin LISPRO 300 UNITS/3 ML VIAL SUBQ SCH ×3 (08:48→16:53)
[2021-10-06] MEDS: Cefepime HCl 2,000 MG in 0.9 % Sodium Chloride 10 ML IVPB SCH ×3 (08:49→23:03)
[2021-10-06] MEDS: Cholecalciferol (D-3) 1,000 UNIT (25MCG) TABLET PO SCH (08:51)
[2021-10-06] MEDS: Pregabalin 75 MG CAPSULE PO SCH ×3 (08:51→21:53)
[2021-10-06] MEDS: atenoloL 25 MG TABLET PO SCH ×2 (08:51→21:53)
[2021-10-06] MEDS: methocarbamoL 750 MG TABLET PO SCH ×2 (08:51→21:52)
[2021-10-06] MEDS: allopurinoL 100 MG TABLET PO SCH (08:51)
[2021-10-06] MEDS: BuPROPion XL (24 HR) 150 MG TABLET PO SCH (08:52)
[2021-10-06] MEDS: Furosemide 40 MG TABLET PO SCH (08:52)
[2021-10-06] MEDS ORDERED: Potassium Chloride Elixir 20 MEQ/15 ML UDC PO ONE (10:58)
[2021-10-06] MEDS ORDERED: *HR* HYDROmorphone (PF) 1 MG/ML SYRINGE IVP ONE (14:36)
[2021-10-06] MEDS: Doxycycline 100 MG in 0.9 % Sodium Chloride Mini Bag 100 ML IVPB SCH (16:57)
[2021-10-06] MEDS: *HR* HYDROcodone/Acet 5/325 mg TABLET PO PRN (22:53)
[2021-10-07 02:53] LABS: Basophils # 0.1 K/mcL (0.0-0.2); Basophils % 0.9 %; Eosinophils # 0.2 K/mcL (0.0-0.6); Hematocrit 32.2 % (35.3-44.9); Hemoglobin 10.1 g/dL (11.5-15.4); Immature Granulocytes % 1.5 % (0-4); Lymphocytes # 2.6 K/mcL (0.6-4.6); Lymphocytes % 32.1 %; Mean Corpuscular HGB Conc 31.4 g/dL (31.6-35.5); Mean Corpuscular Volume 89.2 fL (83.0-100.0); Mean Platelet Volume 10.2 fL (9.4-12.4); Monocytes # 0.7 K/mcL (0.0-1.3); Monocytes % 8.9 %; Neutrophils # 4.4 K/mcL (1.6-8.9); Platelet Count 217 K/mcL (140-400); Red Blood Count 3.61 M/mcL (3.82-4.97); Red Cell Distribution Width 14.6 % (11.5-14.5); Segmented Neutrophils % 53.6 %; White Blood Count 8.1 K/mcL (4.3-11.1)
[2021-10-07 03:12] LABS: Calcium 8.2 mg/dL (8.6-10.3)
[2021-10-07] MEDS: Doxycycline 100 MG in 0.9 % Sodium Chloride Mini Bag 100 ML IVPB SCH (05:03)
[2021-10-07] MEDS: *HR* Heparin 5,000 UNIT/ML VIAL SQ SCH ×2 (05:03→22:06)
[2021-10-07] MEDS: Budesonide/Formoterol 160/4.5 1 PUFF INH IH SCH ×2 (07:56→20:53)
[2021-10-07 09:00] LABS: Uric Acid 6.4 mg/dL (2.3-7.6)
[2021-10-07] MEDS: Insulin LISPRO 300 UNITS/3 ML VIAL SUBQ SCH ×3 (09:10→17:20)
[2021-10-07] MEDS: 0.9 % Sodium Chloride 1,000 ML IVC SCH ×2 (09:23→17:34)
[2021-10-07] MEDS: Potassium Chloride Elixir 20 MEQ/15 ML UDC PO SCH ×2 (09:24→22:10)
[2021-10-07] MEDS: Cefepime HCl 2,000 MG in 0.9 % Sodium Chloride 10 ML IVPB SCH ×2 (09:24→17:34)
[2021-10-07] MEDS: BuPROPion XL (24 HR) 150 MG TABLET PO SCH (09:27)
[2021-10-07] MEDS: Cholecalciferol (D-3) 1,000 UNIT (25MCG) TABLET PO SCH (09:27)
[2021-10-07] MEDS: atenoloL 25 MG TABLET PO SCH ×2 (09:27→22:06)
[2021-10-07] MEDS: Pregabalin 75 MG CAPSULE PO SCH ×3 (09:27→22:05)
[2021-10-07] MEDS: methocarbamoL 750 MG TABLET PO SCH ×2 (09:28→22:05)
[2021-10-07] MEDS: allopurinoL 100 MG TABLET PO SCH (09:28)
[2021-10-07 15:21] LABS: Bacteria,Urine Few per hpf (None-Few); Bilirubin,Urine Negative (Negative); Blood,Urine Moderate (Negative); Clarity,Urine Clear (Clear); Color,Urine Light-Yellow (Yellow); Glucose,Urine (UA) Normal (Normal); Ketones,Urine Negative (Negative); Leukocyte Esterase,Urine Small (Negative); Mucus,Urine Few per lpf (None-Few); Nitrite,Urine Negative (Negative); Protein,Urine Trace mg/dL (Neg-Trace); RBC,Urine 15-30 per hpf (0-3); Specific Gravity,Urine 1.011 (1.010-1.025); Squamous Epithelial Cell,Urine Few per hpf (None-Few); Urobilinogen,Urine Normal (Normal); WBC,Urine 15-30 per hpf (0-3)
[2021-10-07 15:27] LABS: Sodium, Urine 42.1 mEq/L
[2021-10-07] MEDS: *HR* OxyCODONE Immed Rel 5 MG TABLET PO PRN (16:00)
[2021-10-07] MEDS ORDERED: *HR* HYDROmorphone (PF) 1 MG/ML SYRINGE IVP ONE (16:21)
[2021-10-07] MEDS: Doxycycline 100 MG CAPSULE PO SCH (22:06)
[2021-10-07] MEDS: Ondansetron 4 MG/2 ML VIAL IVP PRN (22:12)
[2021-10-08] MEDS: Cefepime HCl 2,000 MG in 0.9 % Sodium Chloride 10 ML IVPB SCH ×4 (00:38→23:40)
[2021-10-08 04:26] LABS: Basophils # 0.1 K/mcL (0.0-0.2); Basophils % 0.7 %; Eosinophils # 0.3 K/mcL (0.0-0.6); Eosinophils % 3.8 %; Hematocrit 34.1 % (35.3-44.9); Hemoglobin 10.4 g/dL (11.5-15.4); Immature Granulocytes % 1.5 % (0-4); Lymphocytes # 1.7 K/mcL (0.6-4.6); Lymphocytes % 23.7 %; Mean Corpuscular HGB Conc 30.5 g/dL (31.6-35.5); Mean Corpuscular Hemoglobin 27.6 pg (28.0-33.3); Mean Corpuscular Volume 90.5 fL (83.0-100.0); Mean Platelet Volume 10.5 fL (9.4-12.4); Monocytes # 0.5 K/mcL (0.0-1.3); Monocytes % 7.2 %; Neutrophils # 4.6 K/mcL (1.6-8.9); Platelet Count 235 K/mcL (140-400); Red Blood Count 3.77 M/mcL (3.82-4.97); Red Cell Distribution Width 14.7 % (11.5-14.5); Segmented Neutrophils % 63.1 %; White Blood Count 7.3 K/mcL (4.3-11.1)
[2021-10-08] MEDS: 0.9 % Sodium Chloride 1,000 ML IVC SCH ×3 (04:32→23:42)
[2021-10-08 04:42] LABS: Calcium 8.4 mg/dL (8.6-10.3); Potassium 3.4 mEq/L (3.5-5.1)
[2021-10-08] MEDS: *HR* Heparin 5,000 UNIT/ML VIAL SQ SCH ×3 (06:36→17:24)
[2021-10-08] MEDS: Budesonide/Formoterol 160/4.5 1 PUFF INH IH SCH ×2 (07:29→20:35)
[2021-10-08] MEDS: Insulin LISPRO 300 UNITS/3 ML VIAL SUBQ SCH ×3 (07:55→16:41)
[2021-10-08] MEDS: Pregabalin 75 MG CAPSULE PO SCH ×3 (09:13→21:21)
[2021-10-08] MEDS: Cholecalciferol (D-3) 1,000 UNIT (25MCG) TABLET PO SCH (09:13)
[2021-10-08] MEDS: atenoloL 25 MG TABLET PO SCH ×2 (09:13→21:21)
[2021-10-08] MEDS: methocarbamoL 750 MG TABLET PO SCH ×2 (09:13→21:21)
[2021-10-08] MEDS: Doxycycline 100 MG CAPSULE PO SCH ×2 (09:13→21:21)
[2021-10-08] MEDS: allopurinoL 100 MG TABLET PO SCH (09:14)
[2021-10-08] MEDS: BuPROPion XL (24 HR) 150 MG TABLET PO SCH (09:14)
[2021-10-08] MEDS: Vancomycin 2,000 MG/520 ML IV.SOLN IVPB SCH (10:20)
[2021-10-08] MEDS: *HR* OxyCODONE Immed Rel 5 MG TABLET PO PRN ×2 (13:06→19:35)
[2021-10-08] MEDS ORDERED: *HR* HYDROmorphone (PF) 1 MG/ML SYRINGE IVP ONE (14:58)
[2021-10-09] MEDS: *HR* OxyCODONE Immed Rel 5 MG TABLET PO PRN ×3 (03:37→21:03)
[2021-10-09] MEDS: Budesonide/Formoterol 160/4.5 1 PUFF INH IH SCH ×2 (07:36→20:18)
[2021-10-09] MEDS: Insulin LISPRO 300 UNITS/3 ML VIAL SUBQ SCH ×3 (09:03→16:53)
[2021-10-09 09:13] LABS: Basophils % 0.6 %; Eosinophils # 0.3 K/mcL (0.0-0.6); Hematocrit 32.6 % (35.3-44.9); Hemoglobin 10.1 g/dL (11.5-15.4); Immature Granulocytes % 1.3 % (0-4); Lymphocytes % 28.9 %; Mean Corpuscular Hemoglobin 28.2 pg (28.0-33.3); Mean Corpuscular Volume 91.1 fL (83.0-100.0); Mean Platelet Volume 10.5 fL (9.4-12.4); Monocytes # 0.5 K/mcL (0.0-1.3); Monocytes % 7.8 %; Platelet Count 226 K/mcL (140-400); Red Blood Count 3.58 M/mcL (3.82-4.97); Red Cell Distribution Width 14.9 % (11.5-14.5); Segmented Neutrophils % 57.4 %
[2021-10-09] MEDS: BuPROPion XL (24 HR) 150 MG TABLET PO SCH (09:16)
[2021-10-09] MEDS: Doxycycline 100 MG CAPSULE PO SCH ×2 (09:17→21:03)
[2021-10-09] MEDS: allopurinoL 100 MG TABLET PO SCH (09:19)
[2021-10-09] MEDS: Cholecalciferol (D-3) 1,000 UNIT (25MCG) TABLET PO SCH (09:19)
[2021-10-09] MEDS: atenoloL 25 MG TABLET PO SCH ×2 (09:19→21:03)
[2021-10-09] MEDS: Pregabalin 75 MG CAPSULE PO SCH ×3 (09:19→21:03)
[2021-10-09] MEDS: methocarbamoL 750 MG TABLET PO SCH ×2 (09:19→21:03)
[2021-10-09] MEDS: Cefepime HCl 2,000 MG in 0.9 % Sodium Chloride 10 ML IVPB SCH ×3 (09:19→23:27)
[2021-10-09] MEDS: Ondansetron 4 MG/2 ML VIAL IVP PRN (09:30)
[2021-10-09 09:33] LABS: Calcium 8.6 mg/dL (8.6-10.3); Potassium 3.5 mEq/L (3.5-5.1)
[2021-10-09] MEDS ORDERED: *HR* HYDROmorphone (PF) 1 MG/ML SYRINGE IVP ONE (13:41)
[2021-10-09] MEDS ORDERED: *HR* LORazepam 2 MG/ML VIAL IVP ONE (13:44)
[2021-10-09] MEDS ORDERED: Magnesium Sulfate 1 GM/102 ML PIGGYBACK IVPB ONE (14:50)
[2021-10-09] MEDS: 0.9 % Sodium Chloride 1,000 ML IVC SCH ×2 (15:48→21:04)
[2021-10-10 03:50] LABS: Hematocrit 30.8 % (35.3-44.9); Hemoglobin 9.5 g/dL (11.5-15.4); Mean Corpuscular HGB Conc 30.8 g/dL (31.6-35.5); Mean Corpuscular Hemoglobin 27.9 pg (28.0-33.3); Mean Corpuscular Volume 90.3 fL (83.0-100.0); Mean Platelet Volume 11.2 fL (9.4-12.4); Platelet Count 229 K/mcL (140-400); Red Blood Count 3.41 M/mcL (3.82-4.97); Red Cell Distribution Width 14.9 % (11.5-14.5)
[2021-10-10 04:07] LABS: Calcium 8.6 mg/dL (8.6-10.3); Magnesium 1.8 mg/dL (1.6-2.6); Potassium 3.2 mEq/L (3.5-5.1)
[2021-10-10] MEDS: 0.9 % Sodium Chloride 1,000 ML IVC SCH ×2 (05:26→15:13)
[2021-10-10] MEDS: Cefepime HCl 2,000 MG in 0.9 % Sodium Chloride 10 ML IVPB SCH ×2 (08:15→15:10)
[2021-10-10] MEDS: BuPROPion XL (24 HR) 150 MG TABLET PO SCH (08:17)
[2021-10-10] MEDS: Cholecalciferol (D-3) 1,000 UNIT (25MCG) TABLET PO SCH (08:17)
[2021-10-10] MEDS: Doxycycline 100 MG CAPSULE PO SCH ×2 (08:18→21:00)
[2021-10-10] MEDS: methocarbamoL 750 MG TABLET PO SCH ×2 (08:18→21:00)
[2021-10-10] MEDS: atenoloL 25 MG TABLET PO SCH ×2 (08:18→21:00)
[2021-10-10] MEDS: Insulin LISPRO 300 UNITS/3 ML VIAL SUBQ SCH ×3 (08:18→16:39)
[2021-10-10] MEDS: allopurinoL 100 MG TABLET PO SCH (08:18)
[2021-10-10] MEDS: Pregabalin 75 MG CAPSULE PO SCH ×3 (08:18→21:00)
[2021-10-10] MEDS: Budesonide/Formoterol 160/4.5 1 PUFF INH IH SCH ×2 (08:21→19:56)
[2021-10-10] MEDS: *HR* OxyCODONE Immed Rel 5 MG TABLET PO PRN (11:44)
[2021-10-10] MEDS: Ondansetron 4 MG/2 ML VIAL IVP PRN ×2 (11:44→20:59)
[2021-10-11] MEDS: Cefepime HCl 2,000 MG in 0.9 % Sodium Chloride 10 ML IVPB SCH ×3 (00:07→16:09)
[2021-10-11 03:59] LABS: Hematocrit 31.7 % (35.3-44.9); Hemoglobin 9.6 g/dL (11.5-15.4); Mean Corpuscular HGB Conc 30.3 g/dL (31.6-35.5); Mean Corpuscular Hemoglobin 27.5 pg (28.0-33.3); Mean Corpuscular Volume 90.8 fL (83.0-100.0); Mean Platelet Volume 11.2 fL (9.4-12.4); Platelet Count 222 K/mcL (140-400); Red Blood Count 3.49 M/mcL (3.82-4.97); Red Cell Distribution Width 15.2 % (11.5-14.5); White Blood Count 7.8 K/mcL (4.3-11.1)
[2021-10-11] MEDS: Insulin LISPRO 300 UNITS/3 ML VIAL SUBQ SCH ×3 (07:29→18:03)
[2021-10-11] MEDS: Budesonide/Formoterol 160/4.5 1 PUFF INH IH SCH ×2 (07:41→20:00)
[2021-10-11] MEDS: Pregabalin 75 MG CAPSULE PO SCH ×3 (09:09→20:58)
[2021-10-11] MEDS: Cholecalciferol (D-3) 1,000 UNIT (25MCG) TABLET PO SCH (09:10)
[2021-10-11] MEDS: methocarbamoL 750 MG TABLET PO SCH ×2 (09:10→20:58)
[2021-10-11] MEDS: atenoloL 25 MG TABLET PO SCH ×2 (09:10→20:58)
[2021-10-11] MEDS: Doxycycline 100 MG CAPSULE PO SCH (09:10)
[2021-10-11] MEDS: BuPROPion XL (24 HR) 150 MG TABLET PO SCH (09:10)
[2021-10-11] MEDS: Ondansetron 4 MG/2 ML VIAL IVP PRN (09:11)
[2021-10-11] MEDS: allopurinoL 100 MG TABLET PO SCH (09:11)
[2021-10-11 09:53] LABS: Calcium 8.9 mg/dL (8.6-10.3); Potassium 3.5 mEq/L (3.5-5.1)
[2021-10-11] MEDS: Metoclopramide 10 MG/2 ML VIAL IVP PRN ×2 (16:06→21:08)
[2021-10-11] MEDS: 0.9 % Sodium Chloride 1,000 ML IVC SCH (18:50)
[2021-10-11] MEDS: Sulfamethoxazole/Trimeth DS 1 EACH TABLET PO SCH (20:58)
[2021-10-11] MEDS: cephALEXin 500 MG CAPSULE PO SCH (20:58)
[2021-10-11] MEDS: *HR* OxyCODONE Immed Rel 5 MG TABLET PO PRN (20:59)
[2021-10-12 02:31] LABS: Hematocrit 32.3 % (35.3-44.9); Hemoglobin 9.9 g/dL (11.5-15.4); Mean Corpuscular HGB Conc 30.7 g/dL (31.6-35.5); Mean Corpuscular Hemoglobin 27.7 pg (28.0-33.3); Mean Corpuscular Volume 90.2 fL (83.0-100.0); Mean Platelet Volume 10.6 fL (9.4-12.4); Platelet Count 226 K/mcL (140-400); Red Blood Count 3.58 M/mcL (3.82-4.97); White Blood Count 8.8 K/mcL (4.3-11.1)
[2021-10-12 02:45] LABS: Albumin 2.5 g/dL (3.5-5.7); Albumin/Globulin Ratio 0.6 (1.1-2.2); Bilirubin,Total 0.4 mg/dL (0.3-1.0); Calcium 8.9 mg/dL (8.6-10.3); Magnesium 1.9 mg/dL (1.6-2.6); Potassium 3.2 mEq/L (3.5-5.1); Total Protein 6.5 g/dL (6.4-8.9)
[2021-10-12] MEDS ORDERED: Morphine Sulfate 2 MG/ML SYRINGE IVP ONE (03:00)
[2021-10-12] MEDS: Insulin LISPRO 300 UNITS/3 ML VIAL SUBQ SCH ×3 (07:28→15:59)
[2021-10-12] MEDS ORDERED: Magnesium Sulfate 1 GM/102 ML PIGGYBACK IVPB ONE (07:34)
[2021-10-12] MEDS: Cholecalciferol (D-3) 1,000 UNIT (25MCG) TABLET PO SCH (07:37)
[2021-10-12] MEDS: methocarbamoL 750 MG TABLET PO SCH ×2 (07:37→21:24)
[2021-10-12] MEDS: Pregabalin 75 MG CAPSULE PO SCH ×3 (07:37→21:24)
[2021-10-12] MEDS: atenoloL 25 MG TABLET PO SCH ×2 (07:37→21:24)
[2021-10-12] MEDS: Sulfamethoxazole/Trimeth DS 1 EACH TABLET PO SCH ×2 (07:37→21:24)
[2021-10-12] MEDS: allopurinoL 100 MG TABLET PO SCH (07:37)
[2021-10-12] MEDS: BuPROPion XL (24 HR) 150 MG TABLET PO SCH (07:37)
[2021-10-12] MEDS: cephALEXin 500 MG CAPSULE PO SCH ×2 (07:37→21:24)
[2021-10-12] MEDS: Budesonide/Formoterol 160/4.5 1 PUFF INH IH SCH ×2 (10:28→20:26)
[2021-10-12] MEDS: *HR* HYDROmorphone (PF) 1 MG/ML SYRINGE IVP PRN (10:57)
[2021-10-13] MEDS: methocarbamoL 750 MG TABLET PO SCH ×2 (07:48→22:26)
[2021-10-13] MEDS: allopurinoL 100 MG TABLET PO SCH (07:49)
[2021-10-13] MEDS: BuPROPion XL (24 HR) 150 MG TABLET PO SCH (07:49)
[2021-10-13] MEDS: atenoloL 25 MG TABLET PO SCH ×2 (07:49→22:24)
[2021-10-13] MEDS: Sulfamethoxazole/Trimeth DS 1 EACH TABLET PO SCH ×2 (07:49→22:25)
[2021-10-13] MEDS: Cholecalciferol (D-3) 1,000 UNIT (25MCG) TABLET PO SCH (07:49)
[2021-10-13] MEDS: cephALEXin 500 MG CAPSULE PO SCH ×2 (07:49→22:24)
[2021-10-13] MEDS: Pregabalin 75 MG CAPSULE PO SCH ×3 (07:49→22:24)
[2021-10-13] MEDS: Insulin LISPRO 300 UNITS/3 ML VIAL SUBQ SCH ×3 (07:50→17:41)
[2021-10-13] MEDS: Budesonide/Formoterol 160/4.5 1 PUFF INH IH SCH ×2 (10:39→20:10)
[2021-10-13] MEDS: *HR* HYDROmorphone (PF) 1 MG/ML SYRINGE IVP PRN (15:35)
[2021-10-13] MEDS: *HR* HYDROcodone/Acet 5/325 mg TABLET PO PRN (22:24)
[2021-10-14 03:35] LABS: Hematocrit 31.7 % (35.3-44.9); Hemoglobin 9.7 g/dL (11.5-15.4); Mean Corpuscular HGB Conc 30.6 g/dL (31.6-35.5); Mean Corpuscular Hemoglobin 27.6 pg (28.0-33.3); Mean Corpuscular Volume 90.3 fL (83.0-100.0); Mean Platelet Volume 11.3 fL (9.4-12.4); Platelet Count 234 K/mcL (140-400); Red Blood Count 3.51 M/mcL (3.82-4.97); Red Cell Distribution Width 15.3 % (11.5-14.5); White Blood Count 8.1 K/mcL (4.3-11.1)
[2021-10-14 03:54] LABS: Calcium 8.9 mg/dL (8.6-10.3); Magnesium 1.9 mg/dL (1.6-2.6); Potassium 2.9 mEq/L (3.5-5.1)
[2021-10-14] MEDS: Insulin LISPRO 300 UNITS/3 ML VIAL SUBQ SCH ×3 (07:47→16:38)
[2021-10-14] MEDS: Budesonide/Formoterol 160/4.5 1 PUFF INH IH SCH ×2 (08:02→20:20)
[2021-10-14] MEDS: cephALEXin 500 MG CAPSULE PO SCH ×2 (09:43→19:59)
[2021-10-14] MEDS: Sulfamethoxazole/Trimeth DS 1 EACH TABLET PO SCH ×3 (09:43→20:00)
[2021-10-14] MEDS: methocarbamoL 750 MG TABLET PO SCH ×2 (09:43→20:00)
[2021-10-14] MEDS: Pregabalin 75 MG CAPSULE PO SCH ×3 (09:43→20:00)
[2021-10-14] MEDS: Cholecalciferol (D-3) 1,000 UNIT (25MCG) TABLET PO SCH (09:43)
[2021-10-14] MEDS: BuPROPion XL (24 HR) 150 MG TABLET PO SCH (09:43)
[2021-10-14] MEDS: allopurinoL 100 MG TABLET PO SCH (09:43)
[2021-10-14] MEDS: *HR* OxyCODONE Immed Rel 5 MG TABLET PO PRN (09:44)
[2021-10-14] MEDS: atenoloL 25 MG TABLET PO SCH ×2 (09:44→20:00)
[2021-10-14] MEDS: Metoclopramide 10 MG/2 ML VIAL IVP PRN (11:45)
[2021-10-14] MEDS ORDERED: Magnesium Sulfate 1 GM/102 ML PIGGYBACK IVPB ONE (17:04)
[2021-10-14] MEDS: *HR* HYDROmorphone (PF) 1 MG/ML SYRINGE IVP PRN (17:39)
[2021-10-15 06:42] LABS: Potassium 3.4 mEq/L (3.5-5.1)
[2021-10-15] MEDS: Insulin LISPRO 300 UNITS/3 ML VIAL SUBQ SCH ×3 (07:33→17:22)
[2021-10-15] MEDS: Budesonide/Formoterol 160/4.5 1 PUFF INH IH SCH ×2 (08:00→19:44)
[2021-10-15] MEDS: Pregabalin 75 MG CAPSULE PO SCH ×3 (10:19→20:01)
[2021-10-15] MEDS: allopurinoL 100 MG TABLET PO SCH (10:19)
[2021-10-15] MEDS: methocarbamoL 750 MG TABLET PO SCH ×2 (10:19→20:01)
[2021-10-15] MEDS: cephALEXin 500 MG CAPSULE PO SCH ×2 (10:19→20:01)
[2021-10-15] MEDS: Cholecalciferol (D-3) 1,000 UNIT (25MCG) TABLET PO SCH (10:19)
[2021-10-15] MEDS: Sulfamethoxazole/Trimeth DS 1 EACH TABLET PO SCH ×2 (10:19→20:05)
[2021-10-15] MEDS: BuPROPion XL (24 HR) 150 MG TABLET PO SCH (10:19)
[2021-10-15] MEDS: atenoloL 25 MG TABLET PO SCH ×2 (10:19→20:01)
[2021-10-15] MEDS: *HR* HYDROmorphone (PF) 1 MG/ML SYRINGE IVP PRN (15:13)
[2021-10-15] MEDS: Metoclopramide 10 MG/2 ML VIAL IVP PRN (20:01)
[2021-10-16 04:13] LABS: BUN/Creatinine Ratio 12 (6-26); Blood Urea Nitrogen 14 mg/dL (6-20); Calcium 8.7 mg/dL (8.6-10.3); Carbon Dioxide 21 mEq/L (23-29); Chloride 108 mEq/L (98-107); Glucose 85 mg/dL (70-105); Osmolality,Calculated 282 (280-300); Potassium 3.9 mEq/L (3.5-5.1); Sodium 136 mEq/L (136-145); eGFR For African Americans > 60 (> 60); eGFR For Non-African Americans 50 (> 60)
[2021-10-16] MEDS: methocarbamoL 750 MG TABLET PO SCH ×2 (08:04→19:47)
[2021-10-16] MEDS: Pregabalin 75 MG CAPSULE PO SCH ×3 (08:04→19:44)
[2021-10-16] MEDS: atenoloL 25 MG TABLET PO SCH ×2 (08:05→19:46)
[2021-10-16] MEDS: BuPROPion XL (24 HR) 150 MG TABLET PO SCH (08:05)
[2021-10-16] MEDS: allopurinoL 100 MG TABLET PO SCH (08:05)
[2021-10-16] MEDS: cephALEXin 500 MG CAPSULE PO SCH ×2 (08:05→19:47)
[2021-10-16] MEDS: Sulfamethoxazole/Trimeth DS 1 EACH TABLET PO SCH ×2 (08:05→19:46)
[2021-10-16] MEDS: Cholecalciferol (D-3) 1,000 UNIT (25MCG) TABLET PO SCH (08:05)
[2021-10-16] MEDS: Insulin LISPRO 300 UNITS/3 ML VIAL SUBQ SCH ×3 (08:06→17:50)
[2021-10-16] MEDS: Budesonide/Formoterol 160/4.5 1 PUFF INH IH SCH ×2 (08:17→20:17)
[2021-10-16] MEDS: Metoclopramide 10 MG/2 ML VIAL IVP PRN (14:37)
[2021-10-16] MEDS: *HR* HYDROmorphone (PF) 1 MG/ML SYRINGE IVP PRN (15:23)
[2021-10-16] MEDS: *HR* Heparin 5,000 UNIT/ML VIAL SQ SCH ×2 (17:52→17:54)
[2021-10-16] MEDS: *HR* HYDROcodone/Acet 5/325 mg TABLET PO PRN (19:46)
[2021-10-17] MEDS: *HR* Heparin 5,000 UNIT/ML VIAL SQ SCH ×2 (06:23→17:26)
[2021-10-17] MEDS: atenoloL 25 MG TABLET PO SCH ×2 (07:36→21:42)
[2021-10-17] MEDS: Sulfamethoxazole/Trimeth DS 1 EACH TABLET PO SCH ×2 (07:36→21:45)
[2021-10-17] MEDS: allopurinoL 100 MG TABLET PO SCH (07:36)
[2021-10-17] MEDS: methocarbamoL 750 MG TABLET PO SCH ×2 (07:37→21:42)
[2021-10-17] MEDS: Pregabalin 75 MG CAPSULE PO SCH ×3 (07:37→21:42)
[2021-10-17] MEDS: Cholecalciferol (D-3) 1,000 UNIT (25MCG) TABLET PO SCH (07:37)
[2021-10-17] MEDS: cephALEXin 500 MG CAPSULE PO SCH ×2 (07:37→21:43)
[2021-10-17] MEDS: BuPROPion XL (24 HR) 150 MG TABLET PO SCH (07:38)
[2021-10-17] MEDS: Budesonide/Formoterol 160/4.5 1 PUFF INH IH SCH ×2 (08:10→20:47)
[2021-10-17] MEDS: Insulin LISPRO 300 UNITS/3 ML VIAL SUBQ SCH ×3 (10:19→17:26)
[2021-10-17] MEDS: *HR* HYDROmorphone (PF) 1 MG/ML SYRINGE IVP PRN (13:29)
[2021-10-17] MEDS: *HR* OxyCODONE Immed Rel 5 MG TABLET PO PRN (21:43)
[2021-10-18 04:55] VITALS: BP 102/69; PULSE 75; TEMP 97.9; O2SAT 95
[2021-10-18] MEDS: *HR* Heparin 5,000 UNIT/ML VIAL SQ SCH ×2 (05:40→18:02)
[2021-10-18] MEDS: Budesonide/Formoterol 160/4.5 1 PUFF INH IH SCH ×2 (07:43→20:31)
[2021-10-18] MEDS: BuPROPion XL (24 HR) 150 MG TABLET PO SCH (08:45)
[2021-10-18] MEDS: cephALEXin 500 MG CAPSULE PO SCH (08:46)
[2021-10-18] MEDS: Pregabalin 75 MG CAPSULE PO SCH ×2 (08:46→17:01)
[2021-10-18] MEDS: atenoloL 25 MG TABLET PO SCH (08:46)
[2021-10-18] MEDS: methocarbamoL 750 MG TABLET PO SCH (08:46)
[2021-10-18] MEDS: Cholecalciferol (D-3) 1,000 UNIT (25MCG) TABLET PO SCH (08:46)
[2021-10-18] MEDS: allopurinoL 100 MG TABLET PO SCH (08:46)
[2021-10-18] MEDS: Insulin LISPRO 300 UNITS/3 ML VIAL SUBQ SCH ×3 (08:47→18:02)
[2021-10-19] MEDS: Budesonide/Formoterol 160/4.5 1 PUFF INH IH SCH (07:51)
== END 2021-10-18 18:15 | disposition home or self-care (01) | DRG 720 ==
LOC: 2NENU → SUATTDRO 10-05 16:03
PROVIDERS: ADMIT Hospitalist; ATTEND Internal Medicine